=== PATIENT | male | born 1950 | race Caucasian/White ===

== ENCOUNTER 2017-05-06 12:38 | Day surgery (SDC) | payer OTHER ==
[2017-05-06] MEDS ORDERED: ATOR20TA15 PO (12:56)
[2017-05-06] MEDS ORDERED: OMEP40CA2 PO (12:56)
[2017-05-06] MEDS ORDERED: LISI40TA PO (12:56)
[2017-05-06 13:00] VITALS: BP 188/109; PULSE 96; RESP 22; TEMP 98.5; O2SAT 95
--- NOTE | 2017-05-06 14:27 | PD.RAD ---
Post Procedure Progress Note Pre Procedure Diagnosis: (1) Left hip pain Post Procedure Diagnosis: (1) Left hip pain Procedure Date: May 06, 2017 Supervising Radiologist: Carlos Gonzáles Estimated blood loss: None Anesthesia: Local Plan of Activity Patient to Unit: [facility] Patient Condition: Good Additional Comments: Left hip aspiration completed 3cc of yellow fluid removed and sent for culture. Pt. Tolerated the procedure well See PACS Report for procedural detail/treatment Carlos Gonzáles MD May 06, 2017 14:27
[2017-05-06 14:40] VITALS: BP 140/97; PULSE 77; RESP 17; O2SAT 93
--- NOTE | 2017-05-06 16:22 | RADRPT ---
EXAM DATE/TIME: 05/06/2017 15:00 [place] COMPARISON: No previous studies available for comparison. INDICATIONS : Patient with avascular necrosis of the left hip in need of aspiration. 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 RESPONSE: Pre procedure pain level was 8/10 Post procedure pain level was 5/10 FLUID: Total volume of2 cc of clear orange fluid was removed. PROCEDURE : 1. Fluoroscopically guided left hip aspiration. The risks, benefits and alternatives to the procedure were explained and verbal and written consent w as obtained. The site was prepped in sterile fashion. Full sterile technique was used, including ca p, mask, sterile gloves and gown and a large sterile sheet. Hand hygiene and 2% chlorhexidine and/or betadine/alcohol prep was utilized per protocol for cutaneous antisepsis. The skin and subcutaneous tissues were infiltrated with local anesthetic solution. A 20 gauge needle was advanced through the skin into the hip. There was immediate return of approxima tely 3-4 cc of straw-colored, thick fluid. This was placed in a syringe and sent to the lab for cultu re and sensitivity. The patient tolerated the procedure well and there were no complications. CONCLUSION: Uncomplicated aspiration as above. there was immediate return of 3-4 cc of thick, straw-colored fluid . Carlos Gonzáles MD on May 06, 2017 at 16:19 Board Certified Radiologist. This report was verified electronically.
[2017-05-06 19:07] LABS: WBC, SYNOVIAL FLUID 47 /MM3 (0-200)
== END 2017-05-06 15:00 | disposition home or self-care (01) ==
LOC: HROP 12:38 → HRIP 12:41 → HROP 15:00
PROVIDERS: ATTEND Orthopaedic Surgery
DX: M16.12 Unilateral primary osteoarthritis, left hip (principal); M25.452 Effusion, left hip
CPT/HCPCS: 20610; 77002; 77003; 87070; 87205; 89051; 89060